=== PATIENT | female | born 1965 | race Caucasian/White ===

== ENCOUNTER → 2016-12-15 | Outpatient (CLI) | payer OTHER ==
[~2016-12-15] MED LIST: Gadobutrol 10 mMOL/10 ML SDV IVPUSH STA
--- NOTE | 2016-12-17 11:31 | MR ---
EXAM DATE: 12/15/16 PATIENT'S AGE: 51 Patient: ANA JIANG Facility: [facility] Site . Site : 1965 Study: MRI-Head [id number]/28/2017 7:01:00 PM Ordering Physician: Mo Guadalupe Final Report: INDICATION: Visual changes, evaluate for multiple sclerosis. Technique: Multiplanar multi sequence MR imaging of the brain was performed with and without intravenous contrast. Comparison: None Findings: Several punctate subcortical T2/FLAIR signal hyperintensities are seen within the anterior frontal lobes bilaterally, right greater than left, which represent a nonspecific finding. No abnormal parenchymal enhancement is seen. No acute ischemia, mass effect, midline shift, or hydrocephalus is demonstrated. Brain parenchymal volume appears normal limits for age. The ventricular system is unremarkable. No parenchymal hemosiderin deposition is present. Expected major intracranial arterial flow voids are. The globes appear intact and the [place] ocular lenses are in appropriate position. The paranasal sinuses demonstrate no obstructive mucosal thickening. Fluid signal is seen within the mastoid air cells bilaterally. Impression : 1. Several punctate subcortical T2/FLAIR signal hyperintensities are seen within the anterior frontal lobes bilaterally, right greater than left, which represent a nonspecific finding that can be seen in the setting of chronic microvascular ischemic changes, chronic headaches, as well as prior inflammation or remote trauma. The distribution would be atypical for a demyelinating process, which is thought to be less likely. 2. Brain parenchymal volume appears within normal limits for age. 3. No abnormal parenchymal enhancement is seen. 4. No parenchymal hemosiderin deposition is present. Dictated by Pablo Sierra MD @ Dec 16 2016 4:07PM Signed by: Pablo Sierra MD @12/16/2016 4:17:05 PM (Electronic Signature) Report Signed by Proxy and Original Signed Document filed in the Medical Record. MTDD
== END ==
LOC: MW.MRI 17:31
PROVIDERS: ATTEND Physician Assistant
DX: H46.9 Unspecified optic neuritis (principal)
CPT/HCPCS: 70553; A9585